=== PATIENT | female | born 1940 | race Caucasian/White ===

== ENCOUNTER → 2017-08-30 | Outpatient (CLI) | payer OTHER ==
[~2017-08-30] MED LIST: CALC-534 PO; LEVO750T26 PO; MV,1TABL3 PO; NIAC100T3 PO; NITR100C PO; OXYB5TAB7 PO; PANT40TA5 PO; SUCR1TAB33 PO; SULF500T36 PO
[2017-08-30 15:09] LABS: BASOPHILS # (AUTO) 0.05 x10^3/uL (0-0.1); BASOPHILS % (AUTO) 1 % (0-1); EOSINOPHILS # (AUTO) 0.04 x10^3/uL (0-0.4); EOSINOPHILS % (AUTO) 1 % (1-7); LYMPHOCYTES # (AUTO) 1.61 x10^3/uL (1-3.4); LYMPHOCYTES % (AUTO) 24 % (22-44); MD NO; MEAN CORPUSCULAR HEMOGLOBIN 29.4 pg (27.0-34.8); MEAN CORPUSCULAR HGB CONC 33.4 g/dL (32.4-35.8); MEAN PLATELET VOLUME 8.4 fL (7.4-10.4); MONOCYTES # (AUTO) 0.56 x10^3/uL (0.2-0.8); MONOCYTES % (AUTO) 8 % (2-9); NEUTROPHILS # (AUTO) 4.46 x10^3/uL (1.8-6.8); NEUTROPHILS % (AUTO) 66 % (42-75); PLATELET COUNT 287 x10^3/uL (130-400); RED BLOOD COUNT 4.71 x10^6/uL (3.82-5.3); RED CELL DISTRIBUTION WIDTH 14.7 % (9.6-15.2)
[2017-08-30 15:17] LABS: ALANINE AMINOTRANSFERASE 24 U/L (12-78); ALBUMIN 3.3 g/dL (3.4-5.0); ANION GAP 7 mmol/L (5-15); CHLORIDE 107 mmol/L (98-107); CREATININE 0.96 mg/dL (0.55-1.02)
[2017-08-30 15:19] LABS: ALKALINE PHOSPHATASE 106 U/L (45-117); BILIRUBIN,TOTAL 0.3 mg/dL (0.2-1.0); TOTAL PROTEIN 6.8 g/dL (6.4-8.2)
== END | disposition home or self-care (01) ==
LOC: STAR 13:57
PROVIDERS: ATTEND Urology
DX: Z01.818 Encounter for other preprocedural examination (principal); N13.5 Crossing vessel and stricture of ureter without hydronephrosis
CPT/HCPCS: 36415; 80053; 85025; 93005

== ENCOUNTER → 2017-09-01 | Outpatient (CLI) | payer OTHER ==
[~2017-09-01] MED LIST changes: +PHEN100T90 PO
[2017-09-01 11:22] LABS: MICROSCOPIC NOT IND
== END | disposition home or self-care (01) ==
LOC: STAR 09:26
PROVIDERS: ATTEND Urology
DX: Z01.818 Encounter for other preprocedural examination (principal); Q62.39 Other obstructive defects of renal pelvis and ureter
CPT/HCPCS: 81003; 87077; 87086; 87186

== ENCOUNTER 2017-09-09 09:16 | Observation (INO) | payer OTHER ==
[~2017-09-09] VITALS: Ht 167.6 cm; Wt 54.5 kg
[~2017-09-09 09:16] MED LIST changes: -PHEN100T90 PO
[2017-09-09] MEDS ORDERED: LACTATED RINGERS 1,000 ML IV SCH (09:45)
[2017-09-09 10:11] VITALS: BP 122/81
[2017-09-09] MEDS ORDERED: ONDANSETRON ODT 8 MG PO ONE (11:00)
[2017-09-09] MEDS ORDERED: FAMOTIDINE 20 MG TABLET PO ONE (11:00)
[2017-09-09] MEDS ORDERED: ACETAMINOPHEN 500 MG TABLET PO ONE (11:00)
[2017-09-09] MEDS ORDERED: OXYcodone IR 5MG TABLET PO ONE (11:00)
[2017-09-09] MEDS ORDERED: FENTANYL PF 100 MCG/2ML ONE (11:29)
[2017-09-09] MEDS ORDERED: MIDAZOLAM 1 MG/ML, 2ML ONE (11:29)
[2017-09-09] MEDS ORDERED: GENTAMICIN 80 MG/2 ML ONE (11:59)
[2017-09-09] MEDS ORDERED: DEXAMETHASONE 4 MG/ML, 1ML ONE (12:02)
[2017-09-09] MEDS ORDERED: PROPOFOL 10 MG/ML, 20ML ONE (12:02)
[2017-09-09] MEDS ORDERED: OMNIPAQUE 350 MG/ML, 50 ML BOTTLE IV ONE (12:36)
[2017-09-09] MEDS ORDERED: OXYcodone 5 MG/5 ML ORAL.SOL UDC PO PRN (14:30)
[2017-09-09] MEDS ORDERED: HYDROcodone/APAP 7.5-325MG/15ML UDC PO PRN (14:30)
[2017-09-09] MEDS ORDERED: MEPERIDINE/PF 25MG/0.5ML IVPush PRN (14:30)
[2017-09-09] MEDS ORDERED: LABETALOL 5MG/ML, 20ML IV PRN (14:30)
[2017-09-09] MEDS ORDERED: MIDAZOLAM 1 MG/ML, 2ML IV PRN (14:30)
[2017-09-09] MEDS ORDERED: ONDANSETRON ODT 8 MG PO PRN (14:30)
[2017-09-09] MEDS ORDERED: EPHEDRINE 50 MG/ML, 1ML IVPush PRN (14:30)
[2017-09-09] MEDS ORDERED: ALBUTEROL SULFATE 2.5 MG/3 ML NPPB PRN (14:30)
[2017-09-09] MEDS ORDERED: FENTANYL PF 100 MCG/2ML IV PRN (14:30)
[2017-09-09] MEDS ORDERED: HYDROmorphone 1 MG/ML, 1ML IV PRN (14:30)
[2017-09-09] MEDS ORDERED: PROMETHAZINE 25 MG/ML, 1ML IV PRN (14:30)
[2017-09-09] MEDS ORDERED: hydrALAzine 20 MG/ML, 1ML IV PRN (14:30)
[2017-09-09] MEDS: PHENAZOPYRIDINE 100 MG TABLET PO SCH ×2 (15:42→21:00)
[2017-09-09] MEDS: OXYBUTYNIN CHLORIDE 5 MG TABLET PO SCH (16:45)
[2017-09-09 16:55] VITALS: BP 149/74
[2017-09-09] MEDS ORDERED: ONDANSETRON 2MG/ML, 2ML IV PRN (17:00)
[2017-09-09] MEDS ORDERED: HYDROcodone/APAP 5/325 TABLET PO PRN (17:00)
[2017-09-09] MEDS ORDERED: ACETAMINOPHEN 325 MG TABLET PO PRN (17:00)
[2017-09-09] MEDS: PANTOPROZOLE 40MG TABLET PO SCH (17:22)
[2017-09-09] MEDS: LACTATED RINGERS 1,000 ML IV SCH ×2 (17:22→21:13)
[2017-09-09 19:28] VITALS: BP 123/66
[2017-09-09] MEDS: NIACIN 100 MG HOMEMEDPO SCH (21:00)
[2017-09-09] MEDS ORDERED: PHENAZOPYRIDINE 200 MG TABLET ONE (21:10)
[2017-09-09] MEDS: SUCRALFATE 1 GM TABLET PO SCH (21:12)
[2017-09-09] MEDS: SULFASALAZINE 500 MG TABLET PO SCH (21:12)
[2017-09-09] MEDS: NITROFURANTOIN (MACROBID) 100 MG CAPSULE PO SCH (21:12)
[2017-09-10 00:52] VITALS: BP 125/63
[2017-09-10] MEDS ORDERED: NITR100C PO (01:15)
[2017-09-10] MEDS ORDERED: PHEN100T90 PO (01:16)
[2017-09-10] MEDS: NIACIN 100 MG HOMEMEDPO SCH (02:52)
[2017-09-10 05:52] LABS: CREATININE 0.95 mg/dL (0.55-1.02)
[2017-09-10] MEDS: SUCRALFATE 1 GM TABLET PO SCH (05:58)
[2017-09-10] MEDS: NITROFURANTOIN (MACROBID) 100 MG CAPSULE PO SCH (08:04)
[2017-09-10] MEDS: PHENAZOPYRIDINE 100 MG TABLET PO SCH (08:05)
[2017-09-10] MEDS: OXYBUTYNIN CHLORIDE 5 MG TABLET PO SCH (08:05)
[2017-09-10] MEDS: SULFASALAZINE 500 MG TABLET PO SCH (08:06)
[2017-09-10] MEDS: PANTOPROZOLE 40MG TABLET PO SCH (08:07)
[2017-09-10 08:53] VITALS: BP 120/65
[2017-09-10] MEDS ORDERED: OXYBUTYNIN CHLORIDE 5 MG TABLET PO SCH (09:00)
[2017-09-10 10:38] VITALS: BP 136/58
== END 2017-09-10 11:40 | disposition home or self-care (01) ==
LOC: OUT 09:16 → ORIP 16:05 → 4NOR 16:41
PROVIDERS: ADMIT Urology; ATTEND Urology
DX: N13.5 Crossing vessel and stricture of ureter without hydronephrosis (principal); K21.9 Gastro-esophageal reflux disease without esophagitis; M06.9 Rheumatoid arthritis, unspecified
CPT/HCPCS: 36415; 52005; 82565; C1726; C1758; C1769; C2617; G0378; J1100; J1580; J2250; J2704; J3010; J7120; Q0162; Q9967

== ENCOUNTER 2017-10-24 11:26 | Emergency (ER) | payer OTHER ==
[~2017-10-24] VITALS: Ht 167.6 cm; Wt 55.0 kg
[~2017-10-24 11:26] MED LIST changes: +PHEN100T90 PO
[2017-10-24] MEDS ORDERED: SODIUM CHLORIDE FLUSH 10ML SYR IVF ONE (12:00)
[2017-10-24 12:20] LABS: BASOPHILS # (AUTO) 0.06 x10^3/uL (0-0.1); BASOPHILS % (AUTO) 1 % (0-1); EOSINOPHILS # (AUTO) 0.01 x10^3/uL (0-0.4); EOSINOPHILS % (AUTO) 0 % (1-7); LYMPHOCYTES # (AUTO) 1.43 x10^3/uL (1-3.4); LYMPHOCYTES % (AUTO) 11 % (22-44); MD NO; MEAN CORPUSCULAR HEMOGLOBIN 29.7 pg (27.0-34.8); MEAN CORPUSCULAR HGB CONC 33.7 g/dL (32.4-35.8); MEAN CORPUSCULAR VOLUME 87.9 fL (80-100); MEAN PLATELET VOLUME 8.4 fL (7.4-10.4); MONOCYTES # (AUTO) 0.74 x10^3/uL (0.2-0.8); MONOCYTES % (AUTO) 6 % (2-9); NEUTROPHILS # (AUTO) 10.29 x10^3/uL (1.8-6.8); NEUTROPHILS % (AUTO) 82 % (42-75); PLATELET COUNT 253 x10^3/uL (130-400); RED BLOOD COUNT 4.77 x10^6/uL (3.82-5.3); RED CELL DISTRIBUTION WIDTH 13.8 % (9.6-15.2)
[2017-10-24 12:30] LABS: ANION GAP 9 mmol/L (5-15); CALCIUM 8.3 mg/dL (8.5-10.1); CHLORIDE 110 mmol/L (98-107)
[2017-10-24 12:35] LABS: CREATININE 1.05 mg/dL (0.55-1.02); TROPONIN I < 0.015 ng/mL (0.000-0.045)
[2017-10-24 13:02] VITALS: BP 148/70
== END 2017-10-24 13:56 | disposition home or self-care (01) ==
LOC: ED 13:06
DX: I48.92 Unspecified atrial flutter (principal); H54.7 Unspecified visual loss; E11.65 Type 2 diabetes mellitus with hyperglycemia; Z90.89 Acquired absence of other organs
CPT/HCPCS: 36415; 71045; 80048; 82040; 84484; 85025; 93005; 99285

== ENCOUNTER → 2018-03-01 | Outpatient (CLI) | payer OTHER | END | disposition home or self-care (01) | LOC: CFH 09:53 | PROVIDERS: ATTEND Internal Medicine Cardiovascular Disease | DX: I35.1 Nonrheumatic aortic (valve) insufficiency (principal); I47.1 Supraventricular tachycardia; E78.5 Hyperlipidemia, unspecified | CPT/HCPCS: 93306 ==

== ENCOUNTER 2018-04-08 16:42 | Emergency (ER) | payer MEDICARE, OTHER ==
[~2018-04-08] VITALS: Ht 167.6 cm; Wt 58.0 kg
--- NOTE | 2018-04-08 17:14 | NUR ---
PT TO ROOM FROM LOBBY
--- NOTE | 2018-04-08 17:19 | NUR ---
77 Y/O FEMALE PRESENTS TO ED WITH C/O GLF. "I MISSED A STEP TODAY AND FELL ON MY RIGHT SIDE. MY RIGHT HIP, ELBOW, AND KNEE HURT. I CAN'T WALK. WHEN I TRIED IT HURTS ALL THE WAY UP MY LEG. IT HURTS TO WALK." PT PLACED ON CONT PULSE OX, NIBP. NO C/O N/V/D, SYNCOPE, CP, SOB.
[2018-04-08] MEDS ORDERED: MV,1TABL3 PO (17:29)
[2018-04-08] MEDS ORDERED: TRAVASTATIN PO (17:29)
[2018-04-08] MEDS ORDERED: CALC-534 PO (17:29)
[2018-04-08] MEDS ORDERED: ALEN70TA5 PO (17:29)
[2018-04-08] MEDS ORDERED: GLUC1CAP48 PO (17:29)
--- NOTE | 2018-04-08 17:45 | NUR ---
pt to imaging.
[2018-04-08 17:47] LABS: BASOPHILS # (AUTO) 0.02 x10^3/uL (0-0.1); BASOPHILS % (AUTO) 0 % (0-1); EOSINOPHILS # (AUTO) 0.01 x10^3/uL (0-0.4); EOSINOPHILS % (AUTO) 0 % (1-7); LYMPHOCYTES # (AUTO) 0.95 x10^3/uL (1-3.4); LYMPHOCYTES % (AUTO) 9 % (22-44); MD NO; MEAN CORPUSCULAR HEMOGLOBIN 30.3 pg (27.0-34.8); MEAN CORPUSCULAR HGB CONC 33.4 g/dL (32.4-35.8); MEAN CORPUSCULAR VOLUME 90.7 fL (80-100); MEAN PLATELET VOLUME 8.5 fL (7.4-10.4); MONOCYTES # (AUTO) 0.76 x10^3/uL (0.2-0.8); MONOCYTES % (AUTO) 7 % (2-9); NEUTROPHILS # (AUTO) 9.36 x10^3/uL (1.8-6.8); NEUTROPHILS % (AUTO) 84 % (42-75); PLATELET COUNT 199 x10^3/uL (130-400); RED CELL DISTRIBUTION WIDTH 13.9 % (9.6-15.2)
[2018-04-08 17:55] LABS: ALBUMIN 3.5 g/dL (3.4-5.0); ANION GAP 10 mmol/L (5-15); CALCIUM 9.1 mg/dL (8.5-10.1); CHLORIDE 109 mmol/L (98-107)
[2018-04-08 17:58] LABS: CREATINE KINASE, TOTAL 201 U/L (26-192)
[2018-04-08] MEDS ORDERED: HYDROmorphone 2 MG/ML, 1ML ONE (18:23)
--- NOTE | 2018-04-08 18:26 | NUR ---
PT RESTING ON GURNEY. NO ACUTE DISTRESS NOTED. PAIN MEDICATION ADMINISTERED PER EMAR. NO NEEDS REQUESTED AT THIS TIME. CALL LIGHT WITHIN REACH.
[2018-04-08] MEDS ORDERED: HYDROmorphone 1 MG/ML, 1ML IM ONE (18:30)
[2018-04-08 18:55] VITALS: BP 143/84
--- NOTE | 2018-04-08 18:56 | NUR ---
REPORT RECIEVED FROM ANGELO GLOVER. PT RESTING ON GURNEY, STATED "THAT PAIN MEDICAINE REALLY HELPED ALOT", MONITORS IN PLACE, CALL LIGHT WITHIN REACH, CHART UP FOR RECHECK
--- NOTE | 2018-04-08 19:20 | NUR ---
provided pt with walker pt able to ambulate without difficulty.
== END 2018-04-08 19:22 | disposition home or self-care (01) ==
LOC: ED 19:15
DX: S50.01XA Contusion of right elbow, initial encounter (principal); S70.01XA Contusion of right hip, initial encounter; S80.01XA Contusion of right knee, initial encounter; W01.0XXA Fall on same level from slipping, tripping and stumbling without subsequent striking against object, initial encounter; Y93.89 Activity, other specified; Y92.009 Unspecified place in unspecified non-institutional (private) residence as the place of occurrence of the external cause; Y99.8 Other external cause status
CPT/HCPCS: 36415; 72170; 73080; 73552; 73564; 80048; 82040; 82550; 85025; 96372; 99284; J1170